=== PATIENT | male | born 1955 | race Caucasian/White ===

== ENCOUNTER 2025-07-04 12:30 | Emergency (ER) | payer MEDICARE, OTHER, SELFPAY ==
[2025-07-04 12:44] VITALS: BP 173/85
[2025-07-04 15:35] VITALS: BP 150/85
--- NOTE | 2025-07-04 15:36 | ED.GENMED ---
History of Present Illness
General
Chief Complaint: Fall
Time Seen by Provider: 07/04/25 14:54
History of Present Illness
History of Present Illness:
70-year-old male with past medical history of hyperlipidemia who presents after a slip and fall on ice where he struck the back of his head on the ground this afternoon. Presents several hours after injury as felt there was something in his throat.
Denies any loss of consciousness. No paresthesias or numbness in his hands or fingers.
Past History
Past History
ED Past Medical History: Hypercholesterolemia
ED Past Surgical History: None
Social History
Tobacco: Non-smoker
Alcohol: Occasional
Personal: Single
Living: alone
Employment: Employed
Phy Exam
General Physical Exam
General Presentation: well appearing and no apparent distress
General Skin: warm and dry
General Habitus: normal
General Mental: alert
General Hydration: appears well hydrated
ENT Exam
ENT Exam: EOMI, pharynx normal, neck supple and normocephalic
Eye Exam
Eye Exam: PERRL, cornea clear and conjunctiva normal
Cardiovascular Exam
Cardiovascular Exam: regular rate/rhythm, no edema, no murmur and normal peripheral pulses
Pulmonary Exam
Pulmonary Exam: lungs clear, no respiratory distress, no rales, no crackles, no rhonchi, no stridor, no wheezing and no cough
Gastrointestinal Exam
Gastrointestinal Exam: normal bowel sounds, non tender, soft, no organomegaly, no pulsatile mass and non distended
Neurological Exam
Neurological Exam: alert, oriented x3, no motor deficits and speech normal
Musculoskeletal Exam
Musculoskeletal Exam: full ROM, no edema and other (Cervical paraspinal tenderness)
Skin Exam
Skin Exam: normal color, warm/dry, no rash and no petechia
Psychiatric Exam
Psychiatric Exam: normal mood/affect
Course
Orders/Labs/Results
Orders:
Orders
07/04/25 12:53
Cervical Spine wo Contrast CT [CT Cervical Spine W/o Iv Contr] Urgent
Comment:
Reason For Exam: head injury, pain with swallowing
07/04/25 12:[address] [CT Head W/o Iv Contrast] Urgent
Comment:
Reason For Exam: head injury
07/04/25 14:22
EKG [Electrocardiogram (*1)] Urgent
Reason for Study: Syncope
EKG- Treatment ONCE
Vital Signs
Initial and Last Documented VS:
Initial Vital Signs
Temp Pulse Resp BP Pulse Ox
37.0 C 81 20 173/85 98
07/04/25 12:44 07/04/25 12:44 07/04/25 12:44 07/04/25 12:44 07/04/25 12:44
Last Documented Vital Signs
Temp Pulse Resp BP Pulse Ox
37.0 C 86 17 150/85 97
07/04/25 12:44 07/04/25 15:35 07/04/25 15:35 07/04/25 15:35 07/04/25 15:38
MDM/Problems Addressed
Differential Diagnosis Includes:
Intracranial hemorrhage, cervical spine fracture, muscular strain, concussion
MDM/Problems Addressed:
CT head and cervical spine obtained with no acute traumatic injuries identified. Patient reports minimal midline tenderness on exam pain is more in the bilateral paraspinal muscles. Consistent with cervical strain from hyperextension. He also
reports feeling like there is something in his throat. No evidence of mass or globulus on exam or CT. Able to swallow and eat without difficulty. Discussed supportive care for cervical strain with patient. Return precautions discussed.
*Pulse Oximetry
SaO2: 97
Oxygen Mode of Delivery: Room air
Patient hypoxic: no
*Critical Care Note
Total Time (30-74mins, 75-104mins- exclusive of procedures): Not Applicable
ED Attending Note
-
Portions of this chart may have been created with voice recognition software.� Occasional wrong word or��sound alike� substitutions may have occurred due to the inherent limitations of voice recognition software.
Discharge Plan
Departure
Patient Disposition: Home (Routine Discharge)
Date of Disposition: 07/04/25
Time of Disposition: 15:23
Patient with high blood pressure during this ER visit?: No
Discharge Problem:
Fall, Cervicalgia, Cervical strain
Instructions: Neck pain - ED (DC)
Prescriptions:
No Action
cyclobenzaprine 10 MG tablet
10 mg PO TIDPRN PRN (Reason: muscle spasm) Qty: 30 0RF
hydrocodone-ibuprofen 200 MG/7.5 MG tablet
1 tab PO QIDPRN PRN (Reason: pain with food) Qty: 20 0RF
Activity Restrictions/Additional Instructions:
You were seen in the emergency department today after a fall. There was no signs of injury on your head or cervical spine CT. Pain is likely related to muscular strain. You can continue to use Tylenol and Motrin for pain. May also use lidocaine
patches as well as heat or ice for comfort. Follow-up with your primary care physician if symptoms do not improve within 1 week.
Interventions
Interventions:
*General Assessment Last Done: 07/04/25 12:44
*Neglect/Abuse Screening Last Done: 07/04/25 12:44
*ED COVID-19 Vaccine History Last Done: 07/04/25 15:36
*ED Influenza Vaccine History Last Done: 07/04/25 15:36
*Risk Screen - Suicide (C-SSRS) Last Done: 07/04/25 12:44
*Nursing Disposition Last Done: 07/04/25 15:45
ED-Musculoskeletal Assessment Last Done: 07/04/25 15:36
ED- Neurological Assessment Last Done: 07/04/25 15:36
ED-Skin Assessment Last Done: 07/04/25 15:36
Discharge Date and Time
Discharge Date/Time: 07/04/25 15:46
Print Language: [id number]
== END 2025-07-04 15:46 | disposition home or self-care (01) ==
LOC: EMR 12:30
PROVIDERS: EMERGENCY PHYSICIAN Emergency Medicine; FAMILY PHYSICIAN Internal Medicine
DX: S16.1XXA Strain of muscle, fascia and tendon at neck level, initial encounter (principal); S09.90XA Unspecified injury of head, initial encounter; W00.0XXA Fall on same level due to ice and snow, initial encounter; E78.00 Pure hypercholesterolemia, unspecified
CPT/HCPCS: 99284; 70450; 72125; 93005